=== PATIENT | male | born 1980 ===

== ENCOUNTER → 2020-03-29 15:20 | Outpatient (BNVA) | payer MEDICARE, MEDICAID, SELFPAY | PROVIDERS: PCP Internal Medicine; Visit Provider Urology | DX: N40.1 Benign prostatic hyperplasia with lower urinary tract symptoms (principal); N13.8 Other obstructive and reflux uropathy | CPT/HCPCS: 81002; 99212 ==

== ENCOUNTER 2020-10-24 08:38 | Outpatient (REF) | payer OTHER, SELFPAY ==
[2020-10-24 09:44] LABS: Alanine Aminotransferase 23 U/L (0-40); Albumin Level 4.4 g/dL (3.5-5.0); Alkaline Phosphatase 71 U/L (39-117); Anion Gap 11 (12-20); Aspartate Amino Transferase 16 U/L (5-37); Bilirubin Total 0.9 mg/dL (0.0-1.0); Blood Urea Nitrogen 12 mg/dL (9-16); Calcium 9.3 mg/dL (8.4-10.2); Carbon Dioxide 24 mmol/L (22-29); Chloride 110 mmol/L (96-108); Estimated Glomerular Filt Rate 58; Glucose Fasting 113 mg/dL (60-99); Potassium 4.2 mmol/L (3.3-5.1); Sodium 141 mmol/L (135-145); Total Protein 7.3 g/dL (6.5-8.0)
[2020-10-24 09:51] LABS: Prostate Specific Antigen 0.85 ng/mL (<0.05-4.0)
== END 2020-10-24 08:39 | disposition home or self-care (01) ==
LOC: HO.LAB 08:38
PROVIDERS: PCP Internal Medicine; Visit Provider Nurse Practitioner Family
DX: Z12.5 Encounter for screening for malignant neoplasm of prostate (principal); Z13.1 Encounter for screening for diabetes mellitus
CPT/HCPCS: 36415; 80053; 84153

== ENCOUNTER → 2020-10-27 14:34 | Outpatient (BNVA) | payer OTHER, SELFPAY | PROVIDERS: PCP Internal Medicine | DX: N40.1 Benign prostatic hyperplasia with lower urinary tract symptoms (principal); N13.8 Other obstructive and reflux uropathy | CPT/HCPCS: Q3014 ==

== ENCOUNTER → 2021-11-02 11:27 | Outpatient (BNVA) | payer OTHER, SELFPAY | PROVIDERS: PCP Internal Medicine; Visit Provider Urology | DX: N40.1 Benign prostatic hyperplasia with lower urinary tract symptoms (principal); N13.8 Other obstructive and reflux uropathy | CPT/HCPCS: 51798; 99212 ==

== ENCOUNTER 2022-12-25 13:43 | Outpatient (AMB) | payer OTHER, SELFPAY ==
--- NOTE | 2022-12-25 13:49 | A.OFFVIS_ITS ---
Intake Intake Visit Reasons: 1Y PVR Intake Note: Patient is Present for Follow Up Urology Medication: Oxybutynin, Tamsulosin (Patient requesting refill on oxybutynin) Antibiotic Allergies: None Blood Thinners: None Pharmacy: [facility] PVR: 0 Allergies No Known Allergies [No Known Allergies*] Allergy (Verified 12/25/22 13:53) Medication List - Last Reconciled 12/25/22 by Fuentes Fabian MD hydrocortisone 2.5% (Anusol-HC) 1 appl [place] BID-QID PRN naproxen 500 mg PO Q12H PRN oxybutynin chloride ER 5 mg PO DAILY 90 days tamsulosin 0.4 mg PO BEDTIME 90 days HPI HPI Comments History of Present Illness Details Theresa is a pleasant male. He is seen for the following urologic conditions - bladder outlet obstruction Well controlled urgency and frequency PVR 0 cc Needs refills Combination therapy tamsulosin and oxybutynin Bladder outlet obstruction Here for further evaluation Current therapy tamsulosin and oxybutynin 5 mg Well tolerated Happy with current therapy PSA 10/22 0.9 Current symptoms nocturia x1 Follow in 12 months [facility] Medical History Obesity Screening for prostate cancer Screening for diabetes mellitus Hemorrhoids BPH with obstruction/lower urinary tract symptoms Surgical History No pertinent past surgical history Family History Father No problems noted. Mother No problems noted. Social History Housing: House Alcohol intake: current Alcohol intake frequency: holidays/special occasions only Patient Tobacco Use Status: Never used Tobacco e-Cigarette/Vaping Use: Never Used Second Hand Smoke Exposure: No service: No Current occupational status: employed Cognitive needs: No Hearing needs: No Vision needs: No Review of Systems Const Denies chills and Denies fever(s) Card Reports no additional complaints and Denies syncope Resp Denies cough GI Denies abdominal pain and Denies heartburn Reports as per HPI and Denies change in libido Neuro Denies syncope Psych Denies change in libido Endo Denies change in libido Physical Exam Const General: cooperative, healthy appearing, comfortable and no acute distress Orientation/consciousness: patient oriented x3 HEENT Face and sinus: Yes normal facial exam Mouth: moist mucous membranes Neck Neck: Yes normal visual inspection, Yes full ROM and Yes trachea midline Chest Chest palpation & inspection: normal inspection of the chest Resp Effort & Inspection: normal respiratory effort, able to speak in complete sentences and no respiratory distress GI Inspection: Yes normal to inspection Back/Spine/Pelvis Cervical Spine: normal cervical lordosis Thoracic/Lumbar Spine: thoracic and lumbar spine normal to inspection Skin General skin exam: no rashes or lesions noted Neuro General: patient oriented x3, gait normal, tone normal and moves all extremities Extrem General: Yes normal to inspection and Yes capillary refill normal Office Procedures Post Void Residual Post Residual Void Post Void Residual (PVR): 0 [id number] Void Residual by ultrasound Results AMB Urinalysis, Automated UA Leukoctes 0 Radha/uL Last Edit by Toyin Valentino [facility] on 12/25/22 14:04 UA Nitrite Negative Last Edit by Toyin Valentino [facility] on 12/25/22 14:04 UA Urobilinogen 0.2 mg/dL Last Edit by Toyin Valentino [facility] on 12/25/22 14:0 4 UA Protein 0 mg/dL Last Edit by Toyin Valentino [facility] on 12/25/22 14:04 UA pH 6.0 Last Edit by Toyin Valentino [facility] on 12/25/22 14:04 UA Blood 0 Kishore/uL Last Edit by Toyin Valentino [facility] on 12/25/22 14:04 UA Specific Golva 1.015 Last Edit by Toyin Valentino [facility] on 12/25/22 14: 04 UA Ketone Negative Last Edit by Toyin Valentino [facility] on 12/25/22 14:04 UA Bilirubin 0 mg/dL Last Edit by Toyin Valentino [facility] on 12/25/22 14:04 UA Glucose 0 mg/dL Last Edit by Toyin Valentino [facility] on 12/25/22 14:04 Results Reviewed Results Reviewed: Laboratory Last Values Urine pH (Auto) 6.0 12/25/22 13:54 Specific Golva (Auto) 1.015 12/25/22 13:54 Urine Protein (Auto) 0 mg/dL 12/25/22 13:54 Glucose (UA)(Auto) 0 mg/dL 12/25/22 13:54 Urine Ketones (Auto) Negative 12/25/22 13:54 Urine Blood (Auto) 0 Kishore/uL 12/25/22 13:54 Urine Nitrite (Auto) Negative 12/25/22 13:54 Urine Bilirubin (Auto) 0 mg/dL 12/25/22 13:54 Urine Urobilinogen (Auto) 0.2 mg/dL 12/25/22 13:54 Leukocyte Esterase (Auto) 0 Radha/uL 12/25/22 13:54 Assessment & Plan Assessment & Plan (1) BPH with obstruction/lower urinary tract symptoms: Code(s): N40.1 - Benign prostatic hyperplasia with lower urinary tract symptoms; N13.8 - Other obstructive and reflux uropathy Plan Continue current medications Orders: Orders AMB Urinalysis Automated Today Z13.9 - Encounter for screening, unspecified AMB Post Void Residual by ultrasound Today N13.8 - Other obstructive and reflux uropathy, N40.1 - Benign prostatic hyperplasia with lower urinary tract symptoms Patient Instructions: Imaging studies, laboratory and physical exam results were discussed and reviewed in detail. No major barriers to patient understanding were identified. An opportunity to ask questions regarding the treatment plan was provided. All questions were answered. The patient expressed understanding and agreement with the above treatment plan. The patient is aware they should contact our office by phone for worsening of their current condition or the appearance of new urologic symptoms. Compliance is encouraged with any medications and followup testing that is ordered. It is a privilege to participate in the urologic care of your patient. If you have any questions or concerns regarding treatment for the above conditions, or other urologic issues, please do not hesitate to contact me. The office telephone contact is [phone]. This note is constructed using voice recognition software. While every effort has been made to ensure accuracy health promoter errors may have been included. Yours sincerely, Dr Fuentes Fabian MD, [facility] - Urology Providers of Expert, Compassionate Care for the Genitourinary System Coding Level of Care Code Est Pt Level 4 (01248) Diagnoses BPH with obstruction/lower urinary tract symptoms N40.1; N13.8 CPT Codes Post Residual Void - PVR CPT Code: 87855-Erur Void Residual by ultrasound ([id number])
== END 2022-12-25 15:21 | disposition home or self-care (01) ==
PROVIDERS: Visit Provider Urology
DX: N40.1 Benign prostatic hyperplasia with lower urinary tract symptoms (principal); N13.8 Other obstructive and reflux uropathy; Z13.9 Encounter for screening, unspecified
CPT/HCPCS: 99213

== ENCOUNTER → 2022-12-25 13:43 | Outpatient (BNVA) | payer OTHER, SELFPAY | PROVIDERS: Visit Provider Urology | DX: N40.1 Benign prostatic hyperplasia with lower urinary tract symptoms (principal); N13.8 Other obstructive and reflux uropathy; N32.0 Bladder-neck obstruction; Z76.0 Encounter for issue of repeat prescription | CPT/HCPCS: 51798; 81003; 99212 ==

== ENCOUNTER 2023-03-29 10:27 | Emergency (ER) | payer OTHER, SELFPAY ==
--- NOTE | ~2023-03-29 | XR_ITS ---
EXAMINATION: XR CHEST CLINICAL INFORMATION: Pain COMPARISON: Previous chest x-ray most recent March 2017 TECHNIQUE: 2 views of the chest were obtained. FINDINGS: The cardiac and mediastinal contours are normal.. There is subsegmental atelectasis at the right lung base. The lungs are otherwise clear. No pleural effusion or pneumothorax. No bone abnormality. XR/XR chest 2V IMPRESSION: Subsegmental atelectasis at the right lung base.
--- NOTE | 2023-03-29 10:28 | ECG_ITS ---
Test Reason : chest pain Blood Pressure : / mmHG Vent. Rate : 075 BPM Atrial Rate : 075 BPM P-R Int : 168 ms QRS Dur : 076 ms QT Int : 346 ms P-R-T Axes : 053 019 032 degrees QTc Int : 386 ms Normal sinus rhythm Normal ECG Referred By: Generic ED Physician Electronically Signed By:Ivan Jackson
[2023-03-29 10:35] VITALS: BP 138/82; PULSE 71; RESP 16; TEMP 36.6; O2SAT 99; BMI 32.5
[2023-03-29 10:47] LABS: MANUAL DIFF FLAG NO
[2023-03-29 10:49] LABS: Basophils Percent Auto 0.3 % (0-2); Eosinophils Absolute Auto 0.1 X10*3/uL (0.0-0.4); Eosinophils Percent Auto 0.5 % (0-4); Hematocrit 49.2 % (42.0-52.0); Hemoglobin 16.7 g/dl (14.0-18.0); Imm Gran Abs Auto 0.04 X10*3/uL (0.00-0.03); Imm Gran Pct Auto 0.3 % (0.0-0.4); Lymphocytes Absolute Auto 1.1 X10*3/uL (1.2-4.9); Lymphocytes Percent Auto 9.1 % (20-40); Mean Corpuscular HGB Conc 33.9 g/dl (31.0-36.0); Mean Corpuscular Hemoglobin 29.6 pg (27.0-33.0); Mean Corpuscular Volume 87.1 fL (80.0-98.0); Mean Platelet Volume 11.3 fL (9.4-12.4); Monocytes Absolute Auto 0.6 X10*3/uL (0.1-1.2); Monocytes Percent Auto 4.7 % (2-11); Neutrophils Absolute Auto 9.9 x10*3/uL (2.0-8.3); Neutrophils Percent Auto 85.1 % (45-73); Platelet Count 162 X10*3/uL (160-400); Red Blood Count 5.65 X10*6/uL (4.60-5.80); Red Cell Distribution Width 13.1 % (11.0-16.0); White Blood Count 11.6 X10*3/uL (4.8-10.8)
[2023-03-29 11:05] LABS: Anion Gap 13 (12-20); Blood Urea Nitrogen 13 mg/dL (9-16); Calcium 9.3 mg/dL (8.4-10.2); Carbon Dioxide 24 mmol/L (22-29); Chloride 108 mmol/L (96-108); Creatinine Clr Calc Pharmacy 84.2; Estimated Glomerular Filt Rate > 60; Glucose Random 104 mg/dL (60-115); Potassium 4.1 mmol/L (3.3-5.1); Sodium 141 mmol/L (135-145)
[2023-03-29 11:14] LABS: Troponin-I High Sensitivity < 2.7 ng/L (<3.5-35.0)
--- NOTE | 2023-03-29 15:24 | ED.CHESTPAIN ---
HPI - Chest Pain General Chief Complaint: Chest Pain Stated Complaint: Chest Pain Time Seen by Provider: 03/29/23 15:24 Source: patient Mode of arrival: ambulatory Limitations: language barrier (Patient's 1st language is Polish, he speaks some Turkish, certified detention deputy used) History of Present Illness HPI narrative: 43-year-old male who presents emergency department for evaluation of chest pain. He states that he was in bed at around 08:00 hours when he developed pain in his chest. The patient runs his hand up and down his sternum when asked to localize the pain. He states that the pain is a squeezing sensation which has been present since onset but waxes and wanes in intensity. The pain is worse with breathing with movement. He denies any heartburn like symptoms but he states that he has had the event acids in the past but not recently. He denied associated lightheadedness, dizziness, diaphoresis, nausea, vomiting, radiation of the pain to his neck jaw or arms. Patient states he has had no difficulty with exertion he has had no chest pain with exertion. He denied swelling of his lower extremities, he denied recent travel. Denied recent illness such as fever, chills, rhinorrhea, sore throat, cough, change in his bowel movements Related Data Previous Rx's Medication Instructions Recorded hydrocortisone 2.5 % topical cream 1 appl DE BID-QID PRN hemorrhoids 07/08/20 with perineal applicator #30 grams (Anusol-HC) naproxen 500 mg tablet 500 mg PO Q12H PRN pain #90 tabs 08/08/21 oxybutynin chloride 5 mg 5 mg PO DAILY 90 days #90 tabs 11/19/22 tablet,extended release 24 hr tamsulosin 0.4 mg capsule 0.4 mg PO BEDTIME 90 days #90 caps 02/08/23 ibuprofen 400 mg tablet 400 mg PO TID PRN fever or pain 03/29/23 #30 tabs Allergies Allergy/AdvReac Type Severity Reaction Status Date / Time No Known Allergies Allergy Verified 12/25/22 13:53 [No Known Allergies*] Review of Systems Review of Systems: Yes all other systems are reviewed and are negative [facility] Past Medical History Attestation statement: The following information was validated with the patient. [facility] Narrative: Past medical history: BPH. Social history: He denies tobacco use. He occasionally drinks alcohol. He denies drug use. Medical History Obesity Screening for prostate cancer Screening for diabetes mellitus Hemorrhoids BPH with obstruction/lower urinary tract symptoms Surgical History No pertinent past surgical history Family History Family History Father No problems noted. Mother No problems noted. Social History Social History Housing: House Alcohol intake: current Alcohol intake frequency: holidays/special occasions only Patient Tobacco Use Status: Never used Tobacco e-Cigarette/Vaping Use: Never Used Second Hand Smoke Exposure: No Advance Directives: No Advance Directives Information Provided: Yes service: No Current occupational status: employed Cognitive needs: No Hearing needs: No Vision needs: No Physical Exam Vital Signs: Vital Signs: Last Vital Signs Temp 98 F 03/29/23 10:35 Pulse 71 03/29/23 10:35 Resp 16 03/29/23 10:35 BP 138/82 03/29/23 10:35 Pulse Ox 99 03/29/23 10:35 O2 Del Method Room Air 03/29/23 10:35 BMI result Body Mass Index 32.5 Vital signs were no Exam: General: Awake, alert in no distress Head: Normocephalic, atraumatic EENT: PERRL, Lids normal, sclera normal, conjunctiva normal, nose normal , ears normal, throat without erythema or exudates Neck: Supple, no adenopathy, no trachea midline or C-spine tenderness Lung: breath sounds symmetric, no wheezing, rales or rhonchi Chest: symmetric movement, patient does have tenderness palpation of his sternum and costochondral joints bilaterally Heart: regular rate and rhythm, normal S1, S2 no murmurs or rubs Abdomen: soft, non-tender, nondistended, normal bowel sounds Back: no vertebral tenderness, no CVAT Extremities: no deformities, moves all extremities symmetrically Neuro: Awake, alert, oriented, normal speech, cranial nerves intact, moves all extremities symmetrically Psych: Pleasant, cooperative Medical Decision Making Medical Decision Making MDM Narrative: 43-year-old male who presents emergency department for evaluation of sternal chest pain which began at 08:00 hours, the pain is been constant but waxes and wanes in intensity, the pain is worse with movement with breathing, he had no other concerning cardiac symptoms and no systemic symptoms preceding the onset of his pain. Patient states he does get heartburn but he has not had use antacids recently. Patient has had no recent travel he has had no swelling in his lower extremities. Vital signs were normal. Exam did reveal tenderness palpation of her sternum and costochondral joints bilaterally Following evaluation was ordered: CBC, BMP, troponin, EKG, chest x-ray Patient was treated with the following: Ibuprofen 400 mg orally Differential diagnosis includes was not limited to: GERD, costochondritis, myocardial ischemia, myocardial infarction, pneumonia, pulmonary embolism, musculoskeletal pain 15:59 My interpretation patient's laboratory evaluation as follows: CBC was normal. CMP was normal. Patient's high sensitive troponin I was below detectable limits which is reassuring suggesting that the patient is not have myocardial injury is the cause of his pain. Chest x-ray on my review revealed no acute disease radiologist noted atelectasis at the right base. Patient's symptoms physical exam and presentation are consistent with costochondritis. Patient was treated with ibuprofen 400 mg orally appears given prescription for ibuprofen 400 mg 3 times a day. He was given printed and verbal instructions and discharged home. Admission/Observation Consideration of admission/observation: Escalation of care including admission/observation considered Lab Data MDM Lab Attestation statement: I reviewed the patient's lab results. 03/29/23 10:44 03/29/23 10:44 Labs: Lab Results 03/29/23 Range/Units 10:44 WBC 11.6 H (4.8-10.8) X10*3/uL RBC 5.65 (4.60-5.80) X10*6/uL Hgb 16.7 (14.0-18.0) g/dl Hct 49.2 (42.0-52.0) % MCV 87.1 (80.0-98.0) fL MCH 29.6 (27.0-33.0) pg MCHC 33.9 (31.0-36.0) g/dl RDW 13.1 (11.0-16.0) % Plt Count 162 (160-400) X10*3/uL MPV 11.3 (9.4-12.4) fL Immature Gran % (Auto) 0.3 (0.0-0.4) % Neut % (Auto) 85.1 H (45-73) % Lymph % (Auto) 9.1 L (20-40) % [place] % (Auto) 4.7 (2-11) % Eos % (Auto) 0.5 (0-4) % Baso % (Auto) 0.3 (0-2) % Lymph # (Auto) 1.1 L (1.2-4.9) X10*3/uL [place] # (Auto) 0.6 (0.1-1.2) X10*3/uL Eos # (Auto) 0.1 (0.0-0.4) X10*3/uL Baso # (Auto) 0.0 (0.0-0.2) X10*3/uL Abs Immat Gran (auto) 0.04 H (0.00-0.03) X10*3/uL Absolute Neuts (auto) 9.9 H (2.0-8.3) x10*3/uL Absolute Nucleated RBC 0.000 (0.0-0.012) X10*3/uL Nucleated RBC % (auto) 0.0 (0.0-0.2) /100WBC Sodium 141 (135-145) mmol/L Potassium 4.1 (3.3-5.1) mmol/L Chloride 108 (96-108) mmol/L Carbon Dioxide 24 (22-29) mmol/L Anion Gap 13 (12-20) BUN 13 (9-16) mg/dL Creatinine 1.21 (0.5-1.4) mg/dL Estim Creat Clear Calc 84.2 Estimated GFR > 60 Random Glucose 104 (60-115) mg/dL Calcium 9.3 (8.4-10.2) mg/dL Troponin I High Sens < 2.7 (<3.5-35.0) ng/L Independent Interpretation I performed an independent interpretation of an: EKG Interpretation: My interpretation patient's 12 EKG done at 10:33 hours is as follows: Normal sinus rhythm rate of 75, normal DE interval, QRS duration QTC interval, no ST segment elevation, no ST segment depression, no significant T-wave abnormalities, no PACs, no PVCs-this is a normal EKG. Radiology Impression Discussion of test interpretation with radiology: I have reviewed the radiologist's reading. Radiologist Impression: XR chest 2V IMPRESSION: Subsegmental atelectasis at the right lung base. Dictated By: Anita Tejada MD Prescription Management I considered prescription management with: Pain Medication Discharge Plan Discharge Clinical Impression: Acute costochondritis Patient Disposition: Home, Self-Care Instructions: Costochondritis (ED) Additional Instructions: Your blood work was normal. Your EKG was normal. Your troponin (marker of heart damage) was below detectable limits in your blood which is very reassuring suggesting that your pain is not caused by a heart attack or heart injury. Your symptoms are consistent with inflammation of the joints of your chest (costochondritis) Take ibuprofen 400 mg pills, 1 pills every 6 hours as needed for pain for the next 4-5 days then as needed Follow-up with your doctor in 2 days. Please return to the emergency department if your symptoms get worse or if you develop any symptoms that are concerning to you. Prescriptions: New ibuprofen 400 mg tablet 400 mg PO TID PRN (Reason: fever or pain) Qty: 30 0RF No Action oxybutynin chloride 5 mg tablet extended release 24hr 5 mg PO DAILY 90 Days Qty: 90 1RF tamsulosin 0.4 mg capsule 0.4 mg PO BEDTIME 90 Days Qty: 90 3RF hydrocortisone [Anusol-HC] 2.5 % cream with perineal applicator 1 appl DE BID-QID PRN (Reason: hemorrhoids) Qty: 30 2RF naproxen 500 mg tablet 500 mg PO Q12H PRN (Reason: pain) Qty: 90 8RF Print Language: Polish
[2023-03-29 15:51] VITALS: BP 132/83; PULSE 78; RESP 16; TEMP 36.9; O2SAT 96
[2023-03-29 16:28] LABS: COVID-19 Test Negative (Negative); IDNOW Serial# 152EDE1D
[2023-03-29] MEDS: Ibuprofen 400 MG TABLET PO (16:52)
== END 2023-03-29 16:56 | disposition home or self-care (01) ==
PROVIDERS: Emergency Medicine; Emergency Provider Emergency Medicine Emergency Medical Services; PCP Internal Medicine
DX: M94.0 Chondrocostal junction syndrome [Tietze] (principal); Z11.52 Encounter for screening for COVID-19
CPT/HCPCS: 36415; 71046; 80048; 84484; 85025; 87635; 93005; 99283; 99284

== ENCOUNTER → 2023-03-29 10:28 | Outpatient (BNV) | payer OTHER, SELFPAY | PROVIDERS: Emergency Provider Emergency Medicine Emergency Medical Services; PCP Internal Medicine; Visit Provider Internal Medicine Cardiovascular Disease | DX: R07.9 Chest pain, unspecified (principal) | CPT/HCPCS: 93010 ==

== ENCOUNTER 2023-12-25 14:36 | Outpatient (AMB) | payer OTHER, SELFPAY ==
--- NOTE | 2023-12-25 14:38 | A.OFFVIS_ITS ---
Intake Visit Reasons: 1Y PVR Intake Note: Patient is present for PVR Follow Up Urology Med: Oxybutynin, Tamsulosin Antibiotic Allergy: None Blood Thinner:None Last PVR: 0 Todays PVR: 114ml Last PSA: 2020- PSA: 0.85 Accompanied by: Self / Same As Patient Allergies No Known Allergies [No Known Allergies*] Allergy (Verified 12/25/22 13:53) HPI Comments Details: Theresa is a pleasant male. He is seen for the following urologic conditions - bladder outlet obstruction Urgency and frequency remains well controlled PVR 100 cc Has just been using tamsulosin We will continue with monotherapy Bladder outlet obstruction Here for further evaluation Current therapy tamsulosin and oxybutynin 5 mg Well tolerated Happy with current therapy PSA 10/22 0.9 Current symptoms nocturia x1 Follow in 12 months [facility] Medical History Obesity Screening for prostate cancer Screening for diabetes mellitus Hemorrhoids BPH with obstruction/lower urinary tract symptoms Surgical History No pertinent past surgical history Family History Father No problems noted. Mother No problems noted. Social History Housing: House Alcohol intake: current Alcohol intake frequency: holidays/special occasions only Patient Tobacco Use Status: Never used Tobacco e-Cigarette/Vaping Use: Never Used Second Hand Smoke Exposure: No service: No Current occupational status: employed Cognitive needs: No Hearing needs: No Vision needs: No Review of Systems Const Denies chills and Denies fever(s) Card Reports no additional complaints and Denies syncope Resp Denies cough GI Denies abdominal pain and Denies heartburn Reports as per HPI and Denies change in libido Neuro Denies syncope Psych Denies change in libido Endo Denies change in libido Physical Exam Const General: cooperative, healthy appearing, comfortable and no acute distress Orientation/consciousness: patient oriented x3 HEENT Face and sinus: Yes normal facial exam Mouth: moist mucous membranes Neck Neck: Yes normal visual inspection, Yes full ROM and Yes trachea midline Chest Chest palpation & inspection: normal inspection of the chest Resp Effort & Inspection: normal respiratory effort, able to speak in complete senten tangela and no respiratory distress GI Inspection: Yes normal to inspection Back/Spine/Pelvis Cervical Spine: normal cervical lordosis Thoracic/Lumbar Spine: thoracic and lumbar spine normal to inspection Skin General skin exam: no rashes or lesions noted Neuro General: patient oriented x3, gait normal, tone normal and moves all extremities Extrem General: Yes normal to inspection and Yes capillary refill normal Office Procedures Post Void Residual Post Residual Void Post Void Residual (PVR): 114 [id number] Void Residual by ultrasound Assessment & Plan Assessment & Plan (1) BPH with obstruction/lower urinary tract symptoms: Code(s): N40.1 - Benign prostatic hyperplasia with lower urinary tract symptoms; N13.8 - Other obstructive and reflux uropathy Category: Medical Plan Monotherapy tamsulosin Orders: Orders AMB Post Void Residual by ultrasound Today N13.8 - Other obstructive and reflux uropathy, N40.1 - Benign prostatic hyperplasia with lower urinary tract symptoms Medications: Refilled tamsulosin 0.4 mg PO BEDTIME 90 days 90 caps 3RF N40.0 - Benign prostatic hyperplasia without lower urinary tract symptoms Discontinued oxybutynin chloride ER Discontinued Reason: Patient Completed Course 5 mg PO DAILY 90 days 90 tabs 1RF N40.0 - Benign prostatic hyperplasia without lower urinary tract symptoms Patient Instructions: Imaging studies, laboratory and physical exam results were discussed and reviewed in detail. No major barriers to patient understanding were identified. An opportunity to ask questions regarding the treatment plan was provided. All questions were answered. The patient expressed understanding and agreement with the above treatment plan. The patient is aware they should contact our office by phone for worsening of their current condition or the appearance of new urologic symptoms. Compliance is encouraged with any medications and followup testing that is ordered. It is a privilege to participate in the urologic care of your patient. If you have any questions or concerns regarding treatment for the above conditions, or other urologic issues, please do not hesitate to contact me. The office telephone contact is [phone]. This note is constructed using voice recognition software. While every effort has been made to ensure accuracy collar closer lockstitch errors may have been included. Yours sincerely, Dr Fuentes Fabian MD, [facility] - Urology Providers of Expert, Compassionate Care for the Genitourinary System Coding Level of Care Code Est Pt Level 3 (08083) Diagnoses BPH with obstruction/lower urinary tract symptoms N40.1; N13.8 CPT Codes Post Residual Void - PVR CPT Code: 61316-Ztcw Void Residual by ultrasound ([id number])
== END 2023-12-25 14:54 | disposition home or self-care (01) ==
PROVIDERS: PCP Internal Medicine; Visit Provider Urology
DX: N40.1 Benign prostatic hyperplasia with lower urinary tract symptoms (principal); N13.8 Other obstructive and reflux uropathy
CPT/HCPCS: 99213

== ENCOUNTER → 2023-12-25 14:36 | Outpatient (BNVA) | payer OTHER, SELFPAY | PROVIDERS: PCP Internal Medicine; Visit Provider Urology | DX: N40.1 Benign prostatic hyperplasia with lower urinary tract symptoms (principal); N13.8 Other obstructive and reflux uropathy | CPT/HCPCS: 51798; 99212 ==

== ENCOUNTER 2024-12-23 14:20 | Outpatient (AMB) | payer OTHER, SELFPAY ==
--- NOTE | 2024-12-23 14:32 | A.OFFVIS_ITS ---
Intake Visit Reasons: 1y follow up Intake Note: Patient is present for 1y Follow Up Urology Med: Tamsulosin Antibiotic Allergy: None Blood Thinner:None Winding Inspector Required: No Winding Inspector Services: Winding Inspector Present Winding Inspector Name: Caleb Quintana Accompanied by: Self / Same As Patient Allergies No Known Allergies (No Known Allergies*) Allergy (Verified 12/23/24 14:53) Medication List - Last Reconciled 12/23/24 by JAKE Lopez hydrocortisone 2.5% (Anusol-HC) 1 appl MT BID-QID PRN ibuprofen 400 mg PO TID PRN naproxen 500 mg PO Q12H PRN tamsulosin 0.4 mg PO BEDTIME 90 days HPI Comments Details: Theresa is a pleasant 44-year-old Chinese-speaking male patient of Dr. Anguiano. He has a past medical history of obesity, hemorrhoids, and BPH. He presents to the office today for follow-up of his bladder outlet obstruction. In discussion with the patient today reports compliance with Flomax 0.4 mg as prescribed. He denies having had any bothersome urinary issues or concerns since his last office visit here. He denies urinary urgency, urinary frequency, incontinence, nocturia, hematuria, dysuria, foul smelling urine, changes to urinary stream, flank pain, fever, and or chills. He is happy with his current voiding parameters. In office urinalysis results reviewed with the patient today. All questions were answered. He otherwise offers no other issues or concerns at this time. PREVIOUS OFFICE NOTE: Bladder outlet obstruction Here for further evaluation Current therapy tamsulosin Well tolerated Happy with current therapy PSA 10/22 0.9 Current symptoms nocturia x1 Follow in 12 months [facility] Medical History Obesity Screening for prostate cancer Screening for diabetes mellitus Hemorrhoids BPH with obstruction/lower urinary tract symptoms Surgical History No pertinent past surgical history Family History Father No problems noted. Mother No problems noted. Social History Housing: House Alcohol intake: current Alcohol intake frequency: holidays/special occasions only Patient Tobacco Use Status: Never used Tobacco e-Cigarette/Vaping Use: Never Used Second Hand Smoke Exposure: No service: No Current occupational status: employed Cognitive needs: No Hearing needs: No Vision needs: No Review of Systems Const All systems reviewed & are unremarkable except as noted in HPI and below Physical Exam Const General: cooperative, healthy appearing, comfortable, no acute distress, well developed, alert and awake Orientation/consciousness: patient oriented x3 Limitations: language barrier HEENT Head: Yes normal to inspection, Yes normocephalic and Yes atraumatic Ears: hearing grossly normal bilaterally Eyes General: appearance normal, both eyes and all related structures Neck Neck: Yes normal visual inspection and Yes trachea midline Chest Chest palpation & inspection: normal inspection of the chest Resp Effort & Inspection: normal respiratory effort and able to speak in complete sentences Cardio Rate: regular rate GI Inspection: Yes normal to inspection General: Yes no CVA tenderness Back/Spine/Pelvis Back: no CVA tenderness Skin General skin exam: no rashes or lesions noted Neuro General: patient oriented x3 Extrem General: Yes normal to inspection Psych Appearance: grossly normal and well kempt Mental Status: mental status grossly normal Speech and movement: Normal speech and movement present and Clear speech present Affect: normal affect Attitude: cooperative Thought process: Normal thought process present Thought content: Normal thought content present Insight: Fair insight present (Psych) Judgement: Fair judgement present (Psych) Results AMB Urinalysis, Automated UA Leukoctes 0 Radha/uL Last Edit by ISAIAH Ann on 12/23/24 15:59 UA Nitrite Negative Last Edit by ISAIAH Ann on 12/23/24 15:59 UA Urobilinogen 0.2 mg/dL Last Edit by ISAIAH Ann on 12/23/24 15:5 9 UA Protein 0 mg/dL Last Edit by ISAIAH Ann on 12/23/24 15:59 UA pH 6.5 Last Edit by ISAIAH Ann on 12/23/24 15:59 UA Blood 0 Kishore/uL Last Edit by ISAIAH Ann on 12/23/24 15:59 UA Specific [place] 1.015 Last Edit by ISAIAH Ann on 12/23/24 15: 59 UA Ketone Negative Last Edit by ISAIAH Ann on 12/23/24 15:59 UA Bilirubin 0 mg/dL Last Edit by ISAIAH Ann on 12/23/24 15:59 UA Glucose 0 mg/dL Last Edit by ISAIAH Ann on 12/23/24 15:59 Results Reviewed Results Reviewed: Laboratory Last Values Urine pH (Auto) 6.5 12/23/24 15:58 Specific [place] (Auto) 1.015 12/23/24 15:58 Urine Protein (Auto) 0 mg/dL 12/23/24 15:58 Glucose (UA)(Auto) 0 mg/dL 12/23/24 15:58 Urine Ketones (Auto) Negative 12/23/24 15:58 Urine Blood (Auto) 0 Kishore/uL 12/23/24 15:58 Urine Nitrite (Auto) Negative 12/23/24 15:58 Urine Bilirubin (Auto) 0 mg/dL 12/23/24 15:58 Urine Urobilinogen (Auto) 0.2 mg/dL 12/23/24 15:58 Leukocyte Esterase (Auto) 0 Radha/uL 12/23/24 15:58 Assessment & Plan Assessment & Plan (1) BPH with obstruction/lower urinary tract symptoms: Code(s): N40.1 - Benign prostatic hyperplasia with lower urinary tract symptoms; N13.8 - Other obstructive and reflux uropathy Category: Medical Plan In office urinalysis results reviewed with the patient today; as noted above. He currently denies any bothersome urinary issues or concerns. He reports be happy with current voiding parameters. Continue Flomax as discussed and prescribed. All questions were answered. Will obtain PSA. Follow-up in 1 year with PSA and PVR; or sooner with any issues, concerns, and or questions. Orders: Orders Prostate Specific Antigen Today N40.0 - Benign prostatic hyperplasia without lower urinary tract symptoms AMB Urinalysis Automated Today Z13.9 - Encounter for screening, unspecified Medications: Refilled tamsulosin 0.4 mg PO BEDTIME 90 caps 3RF 90 days N40.0 - Benign prostatic hyperplasia without lower urinary tract symptoms Patient Instructions: The patient had an opportunity to ask questions regarding the treatment plan. All questions were answered. Physical exam, labs, and imaging were discussed and reviewed in detail. As well as risks, benefits, and discussion of treatment choices. No major barriers to understanding were identified. The patient expressed understanding and agreement with the above treatment plan. The patient was made aware they should contact our office by phone for worsening of their current condition, the appearance of new symptoms, or with any questions or concerns. Compliance is encouraged with any medications and follow up testing that is ordered. It is a privilege to be allowed the opportunity to participate in? your urological care.? Again, if you have any questions or concerns If you have any questions or concerns please do not hesitate to contact me. The office is [phone]. This note is constructed using voice recognition software. While every effort has been made to ensure accuracy learning and development consultant errors may have been included. Yours sincerely, JAKE Lopez Coding Level of Care Code Est Pt Level 3 (07027) Diagnoses BPH with obstruction/lower urinary tract symptoms N40.1; N13.8
== END 2024-12-23 14:52 | disposition home or self-care (01) ==
LOC: HO.HUSH 14:20
PROVIDERS: PCP Internal Medicine; Visit Provider Nurse Practitioner Family
DX: N40.1 Benign prostatic hyperplasia with lower urinary tract symptoms (principal); N13.8 Other obstructive and reflux uropathy; Z13.9 Encounter for screening, unspecified
CPT/HCPCS: 99213

== ENCOUNTER → 2024-12-23 14:20 | Outpatient (BNVA) | payer OTHER, SELFPAY | PROVIDERS: PCP Internal Medicine; Visit Provider Nurse Practitioner Family | DX: N40.1 Benign prostatic hyperplasia with lower urinary tract symptoms (principal); N13.8 Other obstructive and reflux uropathy | CPT/HCPCS: 81003; 99212 ==